=== PATIENT | male | born 1960 | race Caucasian/White ===

== ENCOUNTER 2017-08-27 08:14 | Emergency (ER) | payer OTHER ==
[2017-08-27 08:40] VITALS: O2SAT 97
[2017-08-27] MEDS ORDERED: cloNIDine HCL 0.1 MG TAB PO ONE (08:59)
--- NOTE | 2017-08-27 08:59 | ED.PDOC ---
History of Present Illness - General Chief Complaint: Respiratory Problem Stated Complaint: cough, vomiting Time Seen by Provider: 08/27/17 08:54 Source: patient Exam Limitations: no limitations Additional Information: PT C/O COUGH FOR 1 WEEK. COUGH IS SPASMOTIC. HAS BEEN TAKING OTC DECONGESTANTS AND TAMIFLU PROPHYLACTICALLY, 1 DAY AGO HE STARTED TWICE DAILY TAMIFLU. HAS HAD DIRECT EXPOSURE TO INFLUENZA. HAS ALSO BEEN OUT OF HIS CLONIDINE FOR THE PAST 2- 4 WEEKS. - History of Present Illness Allergies/Adverse Reactions: Allergies Lisinopril [From Zestril] Allergy (Unknown, Verified 06/05/16 22:36) Home Medications: Ambulatory Orders Amoxicillin & Pot Clavulanate [Augmentin Tab] 875 mg PO BID #20 tab 08/27/17 Clonidine HCl 0.2 mg PO BID #60 tab 08/27/17 Hydrochlorothiazide 25 mg PO DAILY 08/27/17 Propranolol HCl 20 mg PO DAILY 08/27/17 Review of Systems - Review of Systems Constitutional: States: fever. Denies: chills EENTM: States: throat pain. Denies: ear pain, nose congestion Respiratory: States: cough, short of breath, wheezing, other - POST TUSSIVE EMESIS Cardiology: Denies: chest pain, palpitations Gastrointestinal/Abdominal: Denies: abdominal pain, nausea, vomiting Genitourinary: States: no symptoms reported Musculoskeletal: States: no symptoms reported Skin: States: no symptoms reported Neurological: States: no symptoms reported Endocrine: States: no symptoms reported Hematologic/Lymphatic: States: no symptoms reported Past Medical History (General) - Patient Medical History Hx Seizures: No Hx Stroke: No Hx Dementia: No Hx Asthma: No Hx of COPD: No Hx Cardiac Disorders: No Hx Congestive Heart Failure: No Hx Pacemaker: No Hx Hypertension: Yes Hx Thyroid Disease: No Hx Diabetes: No Hx Gastroesophageal Reflux: No Hx Renal Disease: No Hx of HIV: No Hx MRSA: No Surgical History: other - Social History Hx Tobacco Use: No Hx Alcohol Use: Yes - socially Hx Substance Use: No Family Medical History - Family History Mother Family History: Unknown Living Status: Hx Family Congestive Heart Failure: Yes Hx Cardiac Disease: Yes Hx Family Diabetes: Yes Physical Exam - Physical Exam General Appearance: Alert, No apparent distress Eye Exam: bilateral normal Ears, Nose, Throat: normal pharynx, other - TM'S NL Neck: full range of motion, supple Respiratory: no respiratory distress - COARSE RUL RHONCHI Cardiovascular/Chest: regular rate, rhythm, no murmur Gastrointestinal/Abdominal: normal bowel sounds, non tender, soft, no organomegaly Back Exam: normal inspection, no CVA tenderness Extremity: normal range of motion, normal inspection, no pedal edema, no calf tenderness Neurologic: alert, normal mood/affect Skin Exam: normal color, warm/dry Lymphatic: no adenopathy Progress - Progress Progress: 08/27/17 10:32 BP BETTER. ASYMPTOMATIC, ELEVATED SECONDARY TO DECONGESTANTS AND ABRUPTLY STOPPING CLONIDINE. WILL RX ABX AND CLONIDINE WITH INSTRUCTIONS TO FOLLOW UP WITH PCP. NO OUTPT INFLUENZA TESTS AVAILABLE AT THIS TIME. 08/27/17 10:37 - EKG/XRAY/CT XRAY: chest - LLL INFILTRATE Departure - Departure Clinical Impression: Elevated blood pressure reading, Pneumonia and influenza Hypertension Qualifiers: Hypertension type: essential hypertension Qualified Code(s): I10 - Essential ( primary) hypertension Time of Disposition: 10:38 Disposition: Discharge to Home or Self Care Condition: Good Departure Forms: ED Discharge - Pt. Copy, Patient Portal Self Enrollment Instructions: Pneumonia-Adult, Influenza, High Blood Pressure Prescriptions: Amoxicillin & Pot Clavulanate [Augmentin Tab] 875 mg PO BID #20 tab Clonidine HCl 0.2 mg PO BID #60 tab Home Medications: Ambulatory Orders Amoxicillin & Pot Clavulanate [Augmentin Tab] 875 mg PO BID #20 tab 08/27/17 Clonidine HCl 0.2 mg PO BID #60 tab 08/27/17 Hydrochlorothiazide 25 mg PO DAILY 08/27/17 Propranolol HCl 20 mg PO DAILY 08/27/17
--- NOTE | 2017-08-27 09:48 | RAD ---
PROCEDURE: Chest,2 Views CLINICAL HISTORY: COUGH, FEVER INDICATION: Same as above COMPARISON: None TECHNIQUE: PA and and lateral chest radiographs were obtained. FINDINGS: The lung bradley are well inflated. There are no discrete airspace infiltrates, pneumothoraces or pleural effusions. The pulmonary vascularity is normal The cardiomediastinal silhouette is unremarkable for patient's age and sex. IMPRESSION: There is no acute pleural-parenchymal process seen in the imaged lung bradley. Place of interpretation: [facility]. Electronically signed by: Barrera Montalvo MD 08/27/2017 9:47 AM [employer] Workstation: [id number]
[2017-08-27] MEDS ORDERED: cefTRIAXone SODIUM 1 GM in SODIUM CHL 0.9% 50ML MIN-BAG+ 50 ML IVPB ONE (10:01)
[2017-08-27] MEDS ORDERED: cefTRIAXone SODIUM 1 GM VIAL ONE (10:07)
[2017-08-27] MEDS ORDERED: SODIUM CHL 0.9% 50ML MIN-BAG+ 0 ML IVPB ONE (10:08)
[2017-08-27] MEDS ORDERED: cefTRIAXone SODIUM 1 GM VIAL IM ONE (10:15)
[2017-08-27 10:18] VITALS: BP 156/108
[2017-08-27] MEDS ORDERED: LIDOCAINE 1% 10 ML VIAL INJ ONE (10:20)
== END 2017-08-27 11:00 | disposition home or self-care (01) ==
LOC: ER 08:14
DX: J11.00 Influenza due to unidentified influenza virus with unspecified type of pneumonia (principal); I10 Essential (primary) hypertension
CPT/HCPCS: 36415; 71046; 80053; 81001; 85025; J0696

== ENCOUNTER 2020-06-28 10:15 | Emergency (ER) | payer OTHER ==
[2020-06-28 10:35] VITALS: O2SAT 95
--- NOTE | 2020-06-28 10:51 | ED.PDOC ---
History of Present Illness - General Chief Complaint: General Stated Complaint: chills,achiness,cough,fever,SOB Time Seen by Provider: 06/28/20 10:21 Source: patient Exam Limitations: no limitations - History of Present Illness Timing/Duration: unsure, other - 4 days Severity: mild, moderate Improving Factors: nothing Worsening Factors: nothing Associated Symptoms: cough, shortness of breath, other - states that he only feels short of breath after exertion Allergies/Adverse Reactions: Allergies Lisinopril [From Zestril] Allergy (Unknown, Verified 06/05/16 22:36) Amlodipine Allergy (Verified 06/28/20 10:49) Home Medications: Ambulatory Orders Hydrochlorothiazide 25 mg PO DAILY 08/27/17 Propranolol HCl [Propranolol Hydrochloride] 20 mg PO DAILY 08/27/17 FLUoxetine HCL 06/28/20 Review of Systems - Review of Systems Constitutional: States: chills, fever. Denies: diaphoresis EENTM: Denies: eye pain, tearing, ear pain, nose pain Respiratory: States: cough, short of breath - with exertion , other - wi Cardiology: Denies: chest pain, syncope Gastrointestinal/Abdominal: States: nausea, vomiting. Denies: abdominal pain, diarrhea Genitourinary: Denies: discharge, frequency, hematuria Musculoskeletal: States: muscle pain. Denies: back pain, joint swelling, muscle stiffness Skin: Denies: change in color, dryness, lesions Neurological: Denies: see HPI, numbness, tremors Past Medical History (General) - Patient Medical History Hx Seizures: No Hx Stroke: No Hx Dementia: No Hx Asthma: No Hx of COPD: No Hx Cardiac Disorders: No Hx Congestive Heart Failure: No Hx Pacemaker: No Hx Hypertension: Yes Hx Thyroid Disease: No Hx Diabetes: No Hx Gastroesophageal Reflux: No Hx Renal Disease: No Hx of HIV: No Hx MRSA: No - Vaccination History Hx Influenza Vaccination: Yes Hx Pneumococcal Vaccination: Yes - Social History Hx Tobacco Use: Yes - occasional pipe smoker Hx Alcohol Use: Yes - socially Hx Substance Use: No Family Medical History - Family History Mother Family History: Unknown Living Status: Hx Family Congestive Heart Failure: Yes Hx Cardiac Disease: Yes Hx Family Diabetes: Yes Physical Exam - Physical Exam General Appearance: Alert Eye Exam: bilateral normal Ears, Nose, Throat: hearing grossly normal, normal ENT inspection, normal pharynx Neck: non-tender, full range of motion, supple, normal inspection Respiratory: chest non-tender, lungs clear, normal breath sounds, no respiratory distress, no accessory muscle use Cardiovascular/Chest: normal peripheral pulses, regular rate, rhythm, no edema, no gallop, no JVD Peripheral Pulses: radial,right: 2+, radial,left: 2+, posterior tibialis,right: 2+, posterior tibialis,left: 2+ Gastrointestinal/Abdominal: normal bowel sounds, non tender, soft, no organomegaly, no pulsatile mass Rectal Exam: normal exam, normal rectal tone Back Exam: normal inspection, no CVA tenderness, no vertebral tenderness Extremity: normal range of motion, non-tender, normal inspection, no pedal edema, no calf tenderness 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 He states that he has exertional shortness of breath. States that is only when he overworks himself. Lung examination Unremarkable. Patient is positive for Covid with discharge patient homeFollow-up instructions.And return precautions he verbalized understanding - EKG/XRAY/CT XRAY: chest - EXAM DESCRIPTION: Chest,1 View CLINICAL HISTORY: Sob COMPARISON: August 27, 2017 FINDINGS: The cardiac silhouette is at the upper limits of normal size. Mediastinal contours. There is no airspace consolidation or pleural effusion. The bronchovascular markings are within normal limits, and t Departure - Departure Clinical Impression: COVID-19 Clinical Impression: (Ruled Out): COVID-19 determined by clinical diagnostic criteria Disposition: Discharge to Home or Self Care Departure Forms: ED Discharge - Pt. Copy, Patient Portal Self Enrollment Instructions: Coronavirus Disease 2019 (COVID-19), Isolation Precautions Diet: full liquid diet Home Medications: Ambulatory Orders Hydrochlorothiazide 25 mg PO DAILY 08/27/17 Propranolol HCl [Propranolol Hydrochloride] 20 mg PO DAILY 08/27/17 FLUoxetine HCL 06/28/20 Additional Instructions: -Please return to the emergency department immediately develop any trouble breathing any chest pain or any hypoxia -Please ensure to follow-up with primary care physician in 1 to 2 days. -Return to the emergency department as needed
--- NOTE | 2020-06-28 11:23 | RAD ---
EXAM DESCRIPTION: Chest,1 View CLINICAL HISTORY: Sob COMPARISON: August 27, 2017 FINDINGS: The cardiac silhouette is at the upper limits of normal size. Mediastinal contours. There is no airspace consolidation or pleural effusion. The bronchovascular markings are within normal limits, and the lungs are not hyperinflated. There is no pneumothorax or acute fracture. IMPRESSION: Borderline enlargement of the cardiac silhouette, otherwise unremarkable exam. Electronically signed by: Kyle Oliveros MD 06/28/2020 11:21 AM [facility]
[2020-06-28] MEDS ORDERED: ACETAMINOPHEN 500 MG TAB PO ONE (12:00)
[2020-06-28 13:29] VITALS: BP 149/109; TEMP 97.8
== END 2020-06-28 13:28 | disposition home or self-care (01) ==
LOC: ER 10:15
DX: U07.1 COVID-19 (principal); I10 Essential (primary) hypertension; Z72.0 Tobacco use; Z88.8 Allergy status to other drugs, medicaments and biological substances

== ENCOUNTER 2020-07-05 12:12 | Inpatient (IN) | payer OTHER ==
--- NOTE | 2020-07-05 13:48 | ED.PDOC ---
History of Present Illness - General Chief Complaint: Respiratory Problem Stated Complaint: SOB and difficulty breathing Time Seen by Provider: 07/05/20 12:24 Source: patient, RN notes reviewed, Vital Signs reviewed, family - significant other Exam Limitations: no limitations - History of Present Illness Initial Comments: Patient is a 59-year-old white male who was at home when he noticed worsening shortness of breath. Patient was diagnosed with Covid about a week ago. Patient denies any fever or chills but states that he just became acutely more short of breath on last 24 hours. Patient continues to smoke. Patient denies any cough. Timing/Duration: 24 hours Severity: severe Improving Factors: nothing Worsening Factors: movement Associated Symptoms: cough, malaise, shortness of breath, weakness Allergies/Adverse Reactions: Allergies Lisinopril [From Zestril] Allergy (Unknown, Verified 07/05/20 12:46) Amlodipine Allergy (Verified 07/05/20 12:46) Home Medications: Ambulatory Orders Hydrochlorothiazide 25 mg PO DAILY 08/27/17 Propranolol HCl [Propranolol Hydrochloride] 20 mg PO DAILY 08/27/17 FLUoxetine HCL 06/28/20 Review of Systems - Review of Systems Constitutional: States: see HPI, malaise, weakness. Denies: chills, fever EENTM: States: no symptoms reported. Denies: eye pain, blurred vision, double vision Respiratory: States: see HPI, cough, short of breath. Denies: stridor, wheezing Cardiology: States: no symptoms reported. Denies: chest pain, palpitations, syncope Gastrointestinal/Abdominal: States: no symptoms reported. Denies: abdominal pain, diarrhea, nausea, vomiting Genitourinary: States: no symptoms reported. Denies: dysuria, frequency Musculoskeletal: States: no symptoms reported. Denies: back pain, joint pain, neck pain Skin: States: no symptoms reported. Denies: change in color, rash Neurological: States: no symptoms reported. Denies: tingling, tremors, weakness Endocrine: States: no symptoms reported. Denies: increased hunger, increased t ava, increased urine Hematologic/Lymphatic: States: no symptoms reported. Denies: blood clots, easy bleeding All other Systems: Reviewed and Negative Past Medical History (General) - Patient Medical History Hx Seizures: No Hx Stroke: No Hx Dementia: No Hx Asthma: No Hx of COPD: No Hx Cardiac Disorders: No Hx Congestive Heart Failure: No Hx Pacemaker: No Hx Hypertension: Yes Hx Thyroid Disease: No Hx Diabetes: No Hx Gastroesophageal Reflux: No Hx Renal Disease: No Hx Cancer: No Hx of HIV: No Hx MRSA: No Surgical History: other - Vaccination History Hx Influenza Vaccination: Yes Hx Pneumococcal Vaccination: Yes - Social History Hx Tobacco Use: No Hx Alcohol Use: Yes Hx Substance Use: No Hx Substance Use Treatment: No Hx Depression: Yes - Female History Patient is a Female of Child Bearing Age (10 -59 yrs old): No Patient : No Family Medical History - Family History Mother Family History: Unknown Living Status: Hx Family Congestive Heart Failure: Yes Hx Cardiac Disease: Yes Hx Family Diabetes: Yes Physical Exam - Physical Exam General Appearance: Alert, Anxious, Obvious distress, Ill Appearing, Unkempt, Well Developed, Well Hydrated, Well Nourished Eye Exam: bilateral normal Ears, Nose, Throat: hearing grossly normal, normal ENT inspection Neck: non-tender, full range of motion, supple Respiratory: chest non-tender, respiratory distress - moderate, decreased breath sounds, rhonchi - diffusely throughout Cardiovascular/Chest: normal peripheral pulses, regular rate, rhythm, no edema, no gallop, no JVD, no murmur Gastrointestinal/Abdominal: normal bowel sounds, non tender, soft Back Exam: normal inspection, no CVA tenderness, no vertebral tenderness Extremity: normal range of motion, non-tender, normal inspection 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 07/05/20 18:15 Patient's oxygenation has improved. He is now on 6 L and maintaining sats in the 94 to 96% range. Plan on admission to the hospital. I discussed this with the patient he voices understanding and agreement. [facility] but [facility] do not have any available beds and therefore recommended admission here. I have discussed this patient with Charlotte Schwarz NP, who accepts patient for admission. Kailash Oconnor M.D. #[id number] - Results/Orders Results/Orders: EKG performed on 05 July 2020 at 1248 hrs.: Sinus rhythm with premature supraventricular complexes at 82 bpm, voltage criteria for left ventricular hypertrophy, nonspecific ST abnormalities, abnormal EKG. No comparison EKG available at this time. EXAM DESCRIPTION: Chest,1 View CLINICAL HISTORY: 59 years Male hypoxia on room air COMPARISON: Portable chest dated 06/28/2020 TECHNIQUE: Portable AP view of the chest is obtained. FINDINGS IN THE CHEST: Heart: Allowing for magnification factors related to AP portable technique and body habitus, the heart is mildly to moderately enlarged. Vasculature: [] There is no evidence of aortic aneurysm or acute findings. The pulmonary vascularity is normal. Mediastinum: No evidence of mass or adenopathy. Lungs: The study is obtained during a markedly suboptimal depth of inspiration with resultant decreased lung volumes. 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 Phrenic nerve injury or palsy also considerations but less likely. Patchy groundglass opacities are present in the lower half of the right lung and in the mid and lower aspects of the left lung which have developed in the interim. Pleura: There are no pleural effusions. There are no pneumothoraces. Osseous structures: No evidence of acute fracture, osteolytic lesions or osteoblastic lesions. Tubes and catheters: None Chest wall: Unremarkable. Visualized Abdomen: Unremarkable. IMPRESSION: Cardiomegaly and bilateral groundglass opacities could indicate fluid overload i.e. congestive heart failure with pulmonary edema. Bacterial pneumonia bilaterally not excluded. Noncardiogenic pulmonary edema is also a consideration. Remainder of findings as described above. Electronically signed by: Eloise Houston MD 07/05/2020 2:14 PM 07/05/20 12:30 EKG STAT Pulse Ox, Continuous Monitoring STAT 07/06/20 12:30 Pulse Ox, Continuous Monitoring STAT 07/07/20 12:30 Pulse Ox, Continuous Monitoring STAT Laboratory Results - last 24 hr 07/05/20 07/05/20 07/05/20 12:38 12:38 12:38 WBC 20.5 H* RBC 5.07 Hgb 15.5 Hct 44.3 MCV 87.5 MCH 30.5 MCHC 34.9 RDW 13.3 Plt Count 336 MPV 8.6 Absolute Neuts (auto) Not Reportable Absolute Lymphs (auto) Not Reportable Absolute Monos (auto) Not Reportable Absolute Eos (auto) Not Reportable Neutrophils % Not Reportable Neutrophils % (Manual) 86.0 H Lymphocytes % Not Reportable Lymphocytes % (Manual) 5.0 Monocytes % Not Reportable Monocytes % (Manual) 6.0 Eosinophils % Not Reportable Basophils % Not Reportable Band Neutrophils 3.0 H Platelet Estimate Normal Normal RBC Morphology Normal rbc morph PTT (SP) 23.2 D-Dimer, Quantitative 707.0 H* pCO2 pO2 HCO3 ABG pH ABG O2 Saturation ABG Base Excess ABG Deoxyhemoglobin Oxyhemoglobin % Carboxyhemoglobin % Methemoglobin % Sat Calc Total Hemoglobin Sodium 138 Potassium 3.5 L Chloride 102 Carbon Dioxide 23 Anion Gap 16.5 BUN 29 H Creatinine 0.92 BUN/Creatinine Ratio 31.5 H Random Glucose 105 Serum Osmolality 281.9 Calcium 8.7 Magnesium 1.9 Total Bilirubin 1.0 AST 20 ALT 25 Alkaline Phosphatase 61 LD Total 287 H Creatine Kinase 37 L Troponin I C-Reactive Protein 8.7 H* B-Natriuretic Peptide 89.3 Serum Total Protein 7.1 Albumin 3.2 Globulin 3.9 H Albumin/Globulin Ratio 0.8 L 07/05/20 07/05/20 12:38 14:31 WBC RBC Hgb Hct MCV MCH MCHC RDW Plt Count MPV Absolute Neuts (auto) Absolute Lymphs (auto) Absolute Monos (auto) Absolute Eos (auto) Neutrophils % Neutrophils % (Manual) Lymphocytes % Lymphocytes % (Manual) Monocytes % Monocytes % (Manual) Eosinophils % Basophils % Band Neutrophils Platelet Estimate Normal RBC Morphology PTT (SP) D-Dimer, Quantitative pCO2 34 L pO2 70 L HCO3 25.2 ABG pH 7.483 H ABG O2 Saturation 94.2 L ABG Base Excess 2.3 ABG Deoxyhemoglobin 5.7 H Oxyhemoglobin % 92.6 L Carboxyhemoglobin % 1.0 Methemoglobin % Sat 0.7 Calc Total Hemoglobin 16.3 Sodium Potassium Chloride Carbon Dioxide Anion Gap BUN Creatinine BUN/Creatinine Ratio Random Glucose Serum Osmolality Calcium Magnesium Total Bilirubin AST ALT Alkaline Phosphatase LD Total Creatine Kinase Troponin I 0.03 C-Reactive Protein B-Natriuretic Peptide Serum Total Protein Albumin Globulin Albumin/Globulin Ratio Vital Signs 07/05/20 07/05/20 07/05/20 12:25 12:27 13:30 Temperature 98.4 F Pulse Rate [ 82 82 82 Pulse ox] Respiratory 24 24 24 Rate Blood Pressure 164/123 161/124 [R arm] O2 Sat by Pulse 82 L 81 L Oximetry 07/05/20 14:30 Temperature Pulse Rate [ 71 Pulse ox] Respiratory 22 Rate Blood Pressure 161/122 [R arm] O2 Sat by Pulse 92 L Oximetry Departure - Departure Clinical Impression: Hypoxemia, COVID-19 Pneumonia Qualifiers: Pneumonia type: due to unspecified organism Laterality: bilateral Lung location: unspecified part of lung Qualified Code(s): J18.9 - Pneumonia, unspecified organism Time of Disposition: 17:00 Disposition: Discharge to Home or Self Care Condition: Serious Departure Forms: ED Discharge - Pt. Copy, Patient Portal Self Enrollment Home Medications: Ambulatory Orders Hydrochlorothiazide 25 mg PO DAILY 08/27/17 Propranolol HCl [Propranolol Hydrochloride] 20 mg PO DAILY 08/27/17 FLUoxetine HCL 06/28/20 Decision To Admit - Decistion To Admit Decision to Admit Date: 07/05/20 Decision to Admit Time: 17:00
--- NOTE | 2020-07-05 14:16 | RAD ---
EXAM DESCRIPTION: Chest,1 View CLINICAL HISTORY: 59 years Male hypoxia on room air COMPARISON: Portable chest dated 06/28/2020 TECHNIQUE: Portable AP view of the chest is obtained. FINDINGS IN THE CHEST: Heart: Allowing for magnification factors related to AP portable technique and body habitus, the heart is mildly to moderately enlarged. Vasculature: [] There is no evidence of aortic aneurysm or acute findings. The pulmonary vascularity is normal. Mediastinum: No evidence of mass or adenopathy. Lungs: The study is obtained during a markedly suboptimal depth of inspiration with resultant decreased lung volumes. 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 Phrenic nerve injury or palsy also considerations but less likely. Patchy groundglass opacities are present in the lower half of the right lung and in the mid and lower aspects of the left lung which have developed in the interim. Pleura: There are no pleural effusions. There are no pneumothoraces. Osseous structures: No evidence of acute fracture, osteolytic lesions or osteoblastic lesions. Tubes and catheters: None Chest wall: Unremarkable. Visualized Abdomen: Unremarkable. IMPRESSION: Cardiomegaly and bilateral groundglass opacities could indicate fluid overload i.e. congestive heart failure with pulmonary edema. Bacterial pneumonia bilaterally not excluded. Noncardiogenic pulmonary edema is also a consideration. Remainder of findings as described above. Electronically signed by: Eloise Houston MD 07/05/2020 2:14 PM [employer]
[2020-07-05] MEDS ORDERED: AZITHROMYCIN IV 500 MG in SODIUM CHLORIDE 0.9% 250ML 250 ML IVPB ONE (14:47)
[2020-07-05] MEDS ORDERED: cefTRIAXone SODIUM 1 GM in SODIUM CHL 0.9% 50ML MIN-BAG+ 50 ML IVPB ONE (14:48)
[2020-07-05] MEDS ORDERED: REMDESIVIR 200 MG in SODIUM CHLORIDE 0.9% 250ML 250 ML IVPB ONE (16:28)
[2020-07-05] MEDS ORDERED: DEXAMETHASONE INJ 10 MG/ML VIAL IV ONE (16:28)
--- NOTE | 2020-07-05 19:07 | HP ---
SUPERVISING PHYSICIAN: Dane Taylor MD CHIEF COMPLAINT: Shortness of breath. HISTORY OF PRESENT ILLNESS: Mr. Ordonez is a 59-year-old male patient who has recently been treated for a COVID-19 infection on 06/28/20 with steroids. He noted that over the last 24 hours, he had some increasing shortness of breath. He denied any chills or fever, but noted with ambulation he was really short of breath. He denied any chest pains. Vital signs in the Emergency Room showed saturation 82% initially on room air at rest. He was also hypertensive with blood pressure 161/122, afebrile at 98.4. His white count was elevated at 20,500 with 3% bands. D-dimer was slightly elevated at 707. Blood gas analysis in the Emergency Room on high flow nasal cannula initially showed he was saturation 94% with pH 7.48, pO2 70, pCO2 34, bicarb 25.2. Chemistries initially on admission showed troponin negative. He was not having any chest pains. C-reactive protein 8.7. BNP was normal. EKG showed sinus rhythm with PVCs, but no ST or T-wave changes to indicate acute injury or ischemia. Blood cultures were completed. Chest x-ray showed cardiomegaly with bilateral ground glass opacities and questionable pulmonary edema and unable to fully rule out bacterial pneumonia bilaterally. He was started on treatment with Remdesivir and now is going to be admitted for further treatment of COVID pneumonia secondary to COVID infection. He was admitted in stable condition. The patient is a patient of the [place] system and they were contacted, but due to capacity, they recommended he be admitted to [facility]. PAST MEDICAL HISTORY: 1. Hypertension. 2. Gout. 3. Multiple kidney stones. PAST SURGICAL HISTORY: 1. Multiple kidney stone removals surgically. HOME MEDICATIONS: 1. Clonidine 0.1 mg p.r.n. for hypertension. 2. Losartan 100 mg daily. 3. Prozac 10 mg t.i.d. 4. Propranolol 40 mg daily. 5. Hydrochlorothiazide 25 mg daily. ALLERGIES: LISINOPRIL, AMLODIPINE. FAMILY HISTORY: Mother in her 80s from complications from CHF and diabetes. Father at age 80 secondary to complications of dementia. He has two sister, one has multiple sclerosis, the other is bipolar. SOCIAL HISTORY: The patient is and lives in [place]. 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 He has no history of tobacco or alcohol usage. He is a . REVIEW OF SYSTEMS: CONSTITUTIONAL: Generalized weakness. Denies any fevers, chills or unintentional weight loss. HEENT: Denies headaches, sore throats, earaches, nasal congestion, vision changes. RESPIRATORY: As noted in history of present illness, worsening cough, shortness of breath. Denies any stridors or wheezing. CARDIOVASCULAR: Denies chest pain, palpitations or syncopal episodes. He does have a history of poorly controlled hypertension. GASTROINTESTINAL: Denies nausea, vomiting, diarrhea, constipation or abdominal pain. GENITOURINARY: Denies dysuria, hematuria, polyuria. MUSCULOSKELETAL: Denies back pain, joint pain or neck. SKIN: Denies lesions, rashes or unexplained changes. NEUROLOGIC: Denies tremors, tingling, weakness, paresthesias or other focal motor deficits, seizures or ataxia. HEMATOLOGIC: Denies unexplained bleeding, bruising or transfusion reactions. PHYSICAL EXAMINATION: VITAL SIGNS: On admission to the Medical/Surgical Floor, temperature 99.1, pulse 58, blood pressure 163/118, oxygen saturation 93% on high flow nasal cannula. GENERAL: The patient is resting comfortably. He is obvious short of breath. He gets quite winded even with conversation. He is not currently showing any signs of impending respiratory distress. HEENT: Tympanic membranes clear bilaterally. Oropharynx is pink, moist without any lesions. NECK: Supple, nontender with full range of motion. No jugular venous distention noted. RESPIRATORY: Lung sounds are diminished throughout. I do not hear any rhonchi, wheezes or rales. CARDIOVASCULAR: Regular rate and rhythm without any appreciable murmurs, gallops, or rubs. ABDOMEN: Soft, nontender. Positive bowel sounds. EXTREMITIES: There is no cyanosis, clubbing or edema. NEUROLOGIC: Cranial nerves II-XII are grossly intact. The patient is alert and oriented times three. SKIN: Warm, pink and dry. LABORATORY: White count initially 20,500, hemoglobin 15.5, hematocrit 44.3, platelet count 336,000. Differential did show a left shift with 3% bands. Coagulation studies showed D-dimer 707. Chemistries showed normal electrolytes except for potassium 3.5, creatinine 0.92. Liver functions all within normal limits. Troponin 0.03. C-reactive protein initially 8.7. MICROBIOLOGY: Blood cultures are pending. RADIOLOGY: Chest x-ray per radiologic interpretation showed cardiomegaly with bilateral ground glass opacities which could indicate fluid overload or congestive heart failure with pulmonary edema, bacterial pneumonia bilaterally not excluded along with noncardiac pulmonary edema. ASSESSMENT: 1. COVID pneumonia with associated hypoxemia. 2. Uncontrolled hypertension. 3. Mild electrolyte imbalance in the form of hypokalemia. 4. History of gout. PLAN: Mr. Ordonez is going to be admitted for treatment of COVID pneumonia. He will be started on azithromycin and Rocephin with continued Remdesivir. He will be on Protonix for GI protection and Lovenox per protocol. We will resume his home medications and hopefully control his blood pressure better and and utilize clonidine as needed to better control p.r.n. Given his hypertension and questionable cardiomegaly on initial chest x-ray, we will follow his co- expression, but at this point hold off on getting an echocardiogram because he did have a normal BNP. We will follow his labs and x-rays per protocol. I would anticipate his length of stay to be at least 2 to 3 days. He is already on high flow oxygen and we will work to titrate that done. I anticipate he will probably need to go home on oxygen. Until the patient can transition to outpatient management, we will continue to monitor and treat as needed. #[id number] MTDD
[2020-07-05] MEDS ORDERED: PROPRANOLOL HCL 20 MG TAB PO SCH (21:30)
[2020-07-05] MEDS ORDERED: ONDANSETRON INJ 4 MG/2 ML VIAL IV PRN (21:47)
[2020-07-05] MEDS ORDERED: ACETAMINOPHEN 325 MG TAB PO PRN (21:47)
[2020-07-05] MEDS ORDERED: SODIUM CHLORIDE 0.9% (FLUSH) 10 ML SYG IV PRN (21:47)
[2020-07-05] MEDS ORDERED: ALBUTEROL INHALER 64 PUFF/8GM INH PRN (21:51)
[2020-07-05] MEDS: ENOXAPARIN SODIUM 40 MG/0.4 ML SYG SUBCU SCH (23:06)
[2020-07-05] MEDS: IV SET AND CAP CHANGE INJ INJ SCH (23:07)
[2020-07-06] MEDS ORDERED: cloNIDine HCL 0.1 MG TAB PO ONE ×2 (05:05→17:20)
[2020-07-06] MEDS: PANTOPRAZOLE SODIUM IV 40 MG VIAL IV SCH (05:37)
[2020-07-06] MEDS ORDERED: cefTRIAXone SODIUM 1 GM VIAL ONE (08:18)
[2020-07-06] MEDS ORDERED: SODIUM CHL 0.9% 50ML MIN-BAG+ 50 ML IVPB ONE (08:18)
[2020-07-06] MEDS ORDERED: SODIUM CHLORIDE 0.9% 250ML 250 ML ONE ×2 (08:18→14:57)
[2020-07-06] MEDS ORDERED: AZITHROMYCIN IV 500 MG VIAL IVPB ONE (08:18)
[2020-07-06] MEDS: ALBUTEROL INHALER 64 PUFF/8GM INH SCH ×4 (08:20→20:26)
[2020-07-06] MEDS: DEXAMETHASONE INJ 10 MG/ML VIAL IV SCH (09:11)
[2020-07-06] MEDS: AZITHROMYCIN IV 500 MG in SODIUM CHLORIDE 0.9% 250ML 250 ML IVPB SCH (09:11)
[2020-07-06] MEDS: cefTRIAXone SODIUM 1 GM in SODIUM CHL 0.9% 50ML MIN-BAG+ 50 ML IVPB SCH (09:11)
[2020-07-06] MEDS: BIFIDOBACTERIUM INFANTIS 4 MG CAP PO SCH ×2 (09:12→20:17)
[2020-07-06] MEDS: SODIUM CHLORIDE 0.9% (FLUSH) 10 ML SYG IV SCH ×2 (09:12→20:17)
[2020-07-06] MEDS: guaiFENesin ER TAB 600 MG TAB PO SCH ×2 (09:12→20:17)
[2020-07-06] MEDS: IPRATROPIUM/ALBUTEROL 3 ML VIAL NEB SCH ×3 (14:27→20:26)
[2020-07-06] MEDS ORDERED: hydroCHLOROthiazide 12.5 MG CAP ONE (14:57)
[2020-07-06] MEDS ORDERED: REMDESIVIR IV 100 MG VIAL ONE (14:57)
[2020-07-06] MEDS: PROPRANOLOL HCL 20 MG TAB PO SCH (15:30)
[2020-07-06] MEDS: hydroCHLOROthiazide 25 MG TAB PO SCH (15:30)
[2020-07-06] MEDS: REMDESIVIR 100 MG in SODIUM CHLORIDE 0.9% 250ML 250 ML IVPB SCH (15:30)
[2020-07-06] MEDS: LOSARTAN POTASSIUM 100 MG TAB PO SCH (15:30)
[2020-07-06] MEDS: FLUoxetine HCL 10 MG CAP PO SCH ×2 (15:30→20:17)
[2020-07-06] MEDS ORDERED: IPRATROPIUM/ALBUTEROL 3 ML VIAL NEB ONE ×2 (15:56→19:59)
--- NOTE | 2020-07-06 18:47 | PN ---
SUPERVISING PHYSICIAN: Dane Taylor MD DATE: 07/06/20 SUBJECTIVE: The patient is still quite short of breath. He is still requiring continued high flow oxygen, but not showing any distress. He has not had any chest pain. His blood pressure is still notably high. We are still waiting on verification at time of exam to get his medications re-started. OBJECTIVE: VITAL SIGNS: Temperature 97.7, pulse 173/99, respirations 23, saturation 92-94% on non-rebreather and nasal cannula high flow at 10 liters. GENERAL: The patient seems to be resting comfortably in no acute distress. He is awfully short of breath. He can converse in complete sentences, but is requiring continued oxygen. CHEST: Lungs are clear to auscultation, just diminished towards the bases. I do not hear any rales or rhonchi. ABDOMEN: Soft, nontender. Positive bowel sounds. EXTREMITIES: No edema. NEUROLOGIC: Alert and oriented times three. LABORATORY: White count down to 16,600. Left shift is still present, but not bands are present at this point. Coagulation studies show D-dimer down to 580. Chemistries show normal electrolytes and normal potassium today. His creatinine is at 0.97. Magnesium and calcium are normal. C-reactive protein is down to 8.0. RADIOLOGY: Repeat chest x-ray will be tomorrow. 1. COVID pneumonia with associated hypoxemia. 2. Uncontrolled hypertension. 3. Electrolyte imbalance in the form of hypokalemia, now normalized. 4. History of gout. PLAN: We will continue current plan of care. We are trying to get his blood pressure in better control with some clonidine and titrate his oxygen down. He remains on standard treatment with Remdesivir, azithromycin, Rocephin, Lovenox, Protonix, Align. Again, hopefully we will be able to discharge him within the next 2 or 3 days as soon as we can get his oxygen requirements down and continued treatment as an outpatient. Until then, we will continue to monitor and treat as needed. #[id number] MTDD
[2020-07-06] MEDS ORDERED: ENOXAPARIN SODIUM 40 MG/0.4 ML SYG SUBCU ONE (19:11)
[2020-07-06] MEDS: ENOXAPARIN SODIUM 40 MG/0.4 ML SYG SUBCU SCH (20:17)
[2020-07-06] MEDS ORDERED: FUROSEMIDE INJ 20 MG/2 ML VIAL IV ONE (21:26)
[2020-07-06] MEDS: NITROGLYCERIN 0.4 MG/HR PATCH TOP SCH (21:57)
[2020-07-06] MEDS: ALPRAZolam 0.5 MG TAB PO PRN (23:20)
[2020-07-06] MEDS: MORPHINE SULFATE INJ 10 MG/ML VIAL IV PRN (23:20)
--- NOTE | 2020-07-07 00:24 | RAD ---
EXAM DESCRIPTION: Chest,1 View CLINICAL HISTORY: 59 years Male, COVID + COMPARISON: 07/05/2020 TECHNIQUE: Single AP chest radiograph. FINDINGS: Stable bilateral lung opacities. No pneumothorax or pleural effusion. Stable cardiomediastinal contour. IMPRESSION: 1. Stable pulmonary opacities. Electronically signed by: Valeriano Larson MD 07/07/2020 12:23 AM [employer]
[2020-07-07] MEDS ORDERED: LEVALBUTEROL NEBS 1.25 MG/3 ML VIAL NEB PRN (01:06)
[2020-07-07] MEDS ORDERED: PANTOPRAZOLE SODIUM IV 40 MG VIAL ONE (02:29)
[2020-07-07] MEDS: MORPHINE SULFATE INJ 10 MG/ML VIAL IV PRN ×2 (03:25→09:48)
[2020-07-07] MEDS: PANTOPRAZOLE SODIUM IV 40 MG VIAL IV SCH (06:05)
[2020-07-07] MEDS ORDERED: DEXAMETHASONE INJ 10 MG/ML VIAL ONE (07:35)
[2020-07-07] MEDS ORDERED: FLUoxetine HCL 10 MG CAP PO ONE (07:35)
[2020-07-07] MEDS ORDERED: BIFIDOBACTERIUM INFANTIS 4 MG CAP ONE (07:36)
[2020-07-07] MEDS ORDERED: PROPRANOLOL HCL 20 MG TAB ONE (07:36)
[2020-07-07] MEDS ORDERED: guaiFENesin ER TAB 600 MG TAB ONE (07:36)
[2020-07-07] MEDS ORDERED: hydroCHLOROthiazide 12.5 MG CAP ONE (07:36)
[2020-07-07] MEDS ORDERED: AZITHROMYCIN IV 500 MG VIAL IVPB ONE (07:36)
[2020-07-07] MEDS ORDERED: SODIUM CHL 0.9% 50ML MIN-BAG+ 50 ML IVPB ONE (07:37)
[2020-07-07] MEDS ORDERED: cefTRIAXone SODIUM 1 GM VIAL ONE (07:37)
[2020-07-07] MEDS ORDERED: LOSARTAN POTASSIUM 100 MG TAB ONE (07:37)
[2020-07-07] MEDS ORDERED: SODIUM CHLORIDE 0.9% 250ML 250 ML ONE (07:37)
[2020-07-07] MEDS: LOSARTAN POTASSIUM 100 MG TAB PO SCH (08:25)
[2020-07-07] MEDS: FLUoxetine HCL 10 MG CAP PO SCH ×3 (08:25→20:02)
[2020-07-07] MEDS: guaiFENesin ER TAB 600 MG TAB PO SCH ×2 (08:25→20:02)
[2020-07-07] MEDS: DEXAMETHASONE INJ 10 MG/ML VIAL IV SCH (08:25)
[2020-07-07] MEDS: BIFIDOBACTERIUM INFANTIS 4 MG CAP PO SCH ×2 (08:25→20:02)
[2020-07-07] MEDS: cefTRIAXone SODIUM 1 GM in SODIUM CHL 0.9% 50ML MIN-BAG+ 50 ML IVPB SCH (08:26)
[2020-07-07] MEDS: hydroCHLOROthiazide 25 MG TAB PO SCH (08:26)
[2020-07-07] MEDS: PROPRANOLOL HCL 20 MG TAB PO SCH (08:26)
[2020-07-07] MEDS: AZITHROMYCIN IV 500 MG in SODIUM CHLORIDE 0.9% 250ML 250 ML IVPB SCH (08:26)
[2020-07-07] MEDS: SODIUM CHLORIDE 0.9% (FLUSH) 10 ML SYG IV SCH ×2 (08:27→20:02)
[2020-07-07] MEDS: LEVALBUTEROL NEBS 1.25 MG/3 ML VIAL NEB SCH ×2 (09:30→16:50)
[2020-07-07] MEDS ORDERED: levoFLOXacin 750MG IV 750 MG in PREMIX BAG 1 BAG IVPB SCH (09:30)
[2020-07-07] MEDS: REMOVE OLD PATCH TOP SCH (09:38)
[2020-07-07] MEDS: ALPRAZolam 0.5 MG TAB PO PRN (09:49)
--- NOTE | 2020-07-07 10:14 | PN ---
SUPERVISING PHYSICIAN: Jacobo Nuñez MD DATE: 07/07/20 SUBJECTIVE: The patient last night had to be placed on noninvasive ventilatory support with BiPAP due to persistent desaturations. He is actually not showing any significant respiratory distress, but his demand for O2 has increased over the last 24 hours. I did discuss plan of care and that we were going to try to get him transferred to a CT facility if possible. At this point, nothing indicates he needs to be intubated, but he certainly is not improving as expected. OBJECTIVE: VITAL SIGNS: Saturations 91% on BiPAP at rest on 100% FIO2. Respirations range between 16 and 25. He is afebrile at 98.0, pulse 67, blood pressure 133/88. GENERAL: The patient is on BiPAP, tolerating without any complications. He does not seem to be in any distress respiratory-adams. He is actually able to speak in full sentences, but he is a little anxious and requiring some Ativan and morphine at times. CHEST: Lung sounds diminished towards the bases. I do not hear any rhonchi or rales or any significant wheezing. HEART: Regular rate and rhythm. ABDOMEN: Obese, but soft and nontender. Positive bowel sounds. EXTREMITIES: No edema. NEUROLOGIC: Alert and oriented times three. LABORATORY: White count has gone up to 27,400. Left shift is noted, but no bands. D-dimer is actually down to 496. PTT 20.4. Fibrinogen 525. Blood gas analysis after he was on BiPAP at 100% shows pH 7.48, pCO2 33, pO2 72, saturation 94%. Chemistries show normal electrolytes, but anion gap is elevated at 18.1. Creatinine 1.17. Liver functions within normal limits except for slightly elevated bilirubin at 1.1. C-reactive protein did go up to 10.2. Troponin 0.02 x2 over the last 12 hours. MICROBIOLOGY: Blood cultures remain negative after 24 hours. RADIOLOGY: Repeat chest x-ray last night after being placed on BiPAP showed stable pulmonary opacities. No pneumothorax or pleural effusions. Stable mediastinal contour. EKG showed sinus rhythm with nonspecific ST wave changes, but nothing to indicate acute ischemia or acute coronary syndrome. Rate was at 68, unchanged from admission. ASSESSMENT: 1. COVID pneumonia with persistent hypoxemia. 2. Uncontrolled hypertension. 3. Electrolyte imbalance in the form of hypokalemia, normalized. 4. History of gout. PLAN: We have started him on noninvasive ventilatory support. Currently, he is at 100% FIO2. Clinically, he seems to be fairly stable, not in respiratory distress, but certainly had not a lot of wiggle room in regards to his respiratory efforts. I did discuss with him that if he progressively worsens to where he is demonstrating some respiratory distress, we will have to do intubation and put him on ventilator support. He is in agreement with that plan of care and requests that if we can transfer him at some point to the CT, that would be preferred. As of today, bed availability is uncertain. I did increase his antibiotic coverage given he had increase in his white count. I am not sure if that is just related to his Decadron, so he is now on Rocephin, azithromycin and Levaquin. He remains on Remdesivir, Protonix and Align. Hopefully, again we will be able to titrate him down on his FIO2 requirements. I anticipate his length of stay to be at least another 2 to 3 days, possibly needing transfer or intubation if he does clinically decline. Critical time spent on evaluation and treatment of the patient, coordination of care with nursing and respiratory staff, chart review, orders, treatment as well as documentation is 45 minutes. #[id number] [facility]
[2020-07-07] MEDS: ALBUTEROL INHALER 64 PUFF/8GM INH SCH ×4 (10:53→21:07)
[2020-07-07] MEDS: REMDESIVIR 100 MG in SODIUM CHLORIDE 0.9% 250ML 250 ML IVPB SCH (11:42)
[2020-07-07] MEDS: levoFLOXacin 750MG IV 750 MG in PREMIX BAG 1 BAG IVPB SCH (14:37)
[2020-07-07] MEDS: ENOXAPARIN SODIUM 40 MG/0.4 ML SYG SUBCU SCH (20:02)
[2020-07-07] MEDS: NITROGLYCERIN 0.4 MG/HR PATCH TOP SCH (20:02)
[2020-07-08] MEDS: LEVALBUTEROL NEBS 1.25 MG/3 ML VIAL NEB SCH ×3 (00:18→16:40)
[2020-07-08] MEDS ORDERED: PANTOPRAZOLE SODIUM TAB 40 MG PO ONE (02:35)
[2020-07-08] MEDS: PANTOPRAZOLE SODIUM TAB 40 MG PO SCH (06:08)
[2020-07-08] MEDS: PROPRANOLOL HCL 20 MG TAB PO SCH (07:00)
[2020-07-08] MEDS: REMOVE OLD PATCH TOP SCH (07:01)
--- NOTE | 2020-07-08 07:07 | RAD ---
PROCEDURE:XR CHEST 1 VIEW HISTORY:COVID PNA COMPARISON: July 07, 2020 FINDINGS: The heart is stable in appearance.. There are stable patchy infiltrates. There are no new infiltrates. There is no evidence for effusion or pneumothorax. There are no acute bony or soft tissue abnormalities. IMPRESSION: Stable chest x-ray. Electronically signed by: Adán Epps MD 07/08/2020 7:05 AM [facility]
[2020-07-08] MEDS: DEXAMETHASONE INJ 10 MG/ML VIAL IV SCH (09:19)
[2020-07-08] MEDS: BIFIDOBACTERIUM INFANTIS 4 MG CAP PO SCH ×2 (09:19→20:27)
[2020-07-08] MEDS: FLUoxetine HCL 10 MG CAP PO SCH ×3 (09:20→20:27)
[2020-07-08] MEDS: LOSARTAN POTASSIUM 100 MG TAB PO SCH (09:20)
[2020-07-08] MEDS: guaiFENesin ER TAB 600 MG TAB PO SCH ×2 (09:20→20:27)
[2020-07-08] MEDS: AZITHROMYCIN IV 500 MG in SODIUM CHLORIDE 0.9% 250ML 250 ML IVPB SCH (09:21)
[2020-07-08] MEDS: cefTRIAXone SODIUM 1 GM in SODIUM CHL 0.9% 50ML MIN-BAG+ 50 ML IVPB SCH (09:21)
[2020-07-08] MEDS: ALBUTEROL INHALER 64 PUFF/8GM INH SCH ×4 (09:22→20:00)
[2020-07-08] MEDS: SODIUM CHLORIDE 0.9% (FLUSH) 10 ML SYG IV SCH ×2 (09:28→20:27)
[2020-07-08] MEDS: hydroCHLOROthiazide 25 MG TAB PO SCH (09:28)
[2020-07-08] MEDS ORDERED: NITROGLYCERIN 0.4 MG/HR PATCH TOP SCH (10:08)
[2020-07-08] MEDS: REMDESIVIR 100 MG in SODIUM CHLORIDE 0.9% 250ML 250 ML IVPB SCH (11:10)
[2020-07-08] MEDS: levoFLOXacin 750MG IV 750 MG in PREMIX BAG 1 BAG IVPB SCH (16:30)
--- NOTE | 2020-07-08 18:02 | PN ---
SUPERVISING PHYSICIAN: Jacobo Nuñez MD DATE: 07/08/20 SUBJECTIVE: The patient is staying fairly stable on BiPAP, but still requires 100% FiO2. He is having some episodes of anxiety attacks, which are treating with Xanax and morphine and seems to be doing fairly well. We are still trying to get him transferred. I discussed this with him and his . They both understand this and again reinforced that if the patient's condition continues to deteriorate any, certainly he will need to be intubated and his wishes are to continue as a full code. OBJECTIVE: VITAL SIGNS: Temperature 98.1, pulse 79, blood pressure 147/84, respirations anywhere from 16 to 27. He is on 100% FiO2 with BiPAP, saturating anywhere from 93 to 94% at rest. GENERAL: At time of exam, the patient is resting comfortably, does not appear to be in any distress. He is actually able to converse in complete sentences but often gets short of breath with any exertional effort. CHEST: Lung sounds fairly clear, just diminished towards the bases. I do not hear any rhonchi or rales at this point. HEART: Regular rate and rhythm. ABDOMEN: Soft and nontender. Positive bowel sounds. EXTREMITIES: No edema. NEUROLOGIC: Alert and oriented times three. LABORATORY: White count is down today at 20,500. Differential does show a left shift with continued bands at 3%. Coagulation studies show D-dimer now normalized. Chemistries show normal electrolytes. Creatinine remains fairly stable and normal at 1.26. Bilirubin 1.1. Liver functions other than that are all normal. C-reactive protein did show some elevation today at 13. MICROBIOLOGY: Blood cultures remain negative after 3 days. RADIOLOGY: Repeat chest x-ray per radiologic interpretation showed x-ray to be stable with patchy infiltrates remaining, but no new infiltrates noted, effusions or pneumothorax. ASSESSMENT: 1. COVID pneumonia with severe hypoxemia requiring noninvasive ventilatory support on BiPAP. 2. Hypertension, now controlled. 3. Electrolyte imbalance in the form of hypokalemia, now normalized. 4. History of gout. PLAN: We will continue with noninvasive ventilatory support in the form of BiPAP. We will titrate his FiO2 down as he actually is showing some improvement. At this point, he is maintaining 100%. He is on antibiotic coverage with azithromycin, Rocephin and I did add Levaquin given his increasing white count and he is on continued Remdesivir, Lovenox at 40 mg at bedtime and D-dimer is normalized, so we will maintain that dosage. We will continue to watch his blood pressure and provide any anxiety medications in the form of Xanax or Ativan as needed to prevent any panic attacks and morphine as needed. Hopefully we will be able to start titrating his O2 needs down. Until then, we will continue to try to get him transferred. I think he is going to need at least an long-term acute care at some point, but until then, we will continue to monitor and treat as needed. #[id number] MTDD
[2020-07-08] MEDS: ENOXAPARIN SODIUM 40 MG/0.4 ML SYG SUBCU SCH (20:27)
[2020-07-08] MEDS: IV SET AND CAP CHANGE INJ INJ SCH (20:47)
[2020-07-08] MEDS ORDERED: REMOVE OLD PATCH TOP SCH (21:00)
[2020-07-08] MEDS: ALPRAZolam 0.5 MG TAB PO PRN (21:50)
[2020-07-08] MEDS: PROMETHAZINE W/CODEINE SYR 6.25 MG/10 MG/5 ML UD PO PRN (21:50)
[2020-07-09] MEDS: LEVALBUTEROL NEBS 1.25 MG/3 ML VIAL NEB SCH ×2 (00:55→08:55)
[2020-07-09] MEDS: PROMETHAZINE W/CODEINE SYR 6.25 MG/10 MG/5 ML UD PO PRN ×3 (05:20→14:51)
[2020-07-09] MEDS: PANTOPRAZOLE SODIUM TAB 40 MG PO SCH (06:09)
[2020-07-09] MEDS: FLUoxetine HCL 10 MG CAP PO SCH ×2 (08:12→14:43)
[2020-07-09] MEDS: guaiFENesin ER TAB 600 MG TAB PO SCH (08:12)
[2020-07-09] MEDS: BIFIDOBACTERIUM INFANTIS 4 MG CAP PO SCH (08:12)
[2020-07-09] MEDS: DEXAMETHASONE INJ 10 MG/ML VIAL IV SCH (08:12)
[2020-07-09] MEDS: PROPRANOLOL HCL 20 MG TAB PO SCH (08:13)
[2020-07-09] MEDS: hydroCHLOROthiazide 25 MG TAB PO SCH (08:13)
[2020-07-09] MEDS: LOSARTAN POTASSIUM 100 MG TAB PO SCH (08:13)
[2020-07-09] MEDS: cefTRIAXone SODIUM 1 GM in SODIUM CHL 0.9% 50ML MIN-BAG+ 50 ML IVPB SCH (08:14)
[2020-07-09] MEDS: SODIUM CHLORIDE 0.9% (FLUSH) 10 ML SYG IV SCH (08:24)
[2020-07-09] MEDS ORDERED: NITROGLYCERIN 0.4 MG/HR PATCH TOP SCH (09:00)
[2020-07-09] MEDS: ALBUTEROL INHALER 64 PUFF/8GM INH SCH ×2 (09:23→12:19)
[2020-07-09] MEDS: AZITHROMYCIN IV 500 MG in SODIUM CHLORIDE 0.9% 250ML 250 ML IVPB SCH (09:37)
[2020-07-09] MEDS: ALPRAZolam 0.5 MG TAB PO PRN (09:54)
[2020-07-09] MEDS: REMDESIVIR 100 MG in SODIUM CHLORIDE 0.9% 250ML 250 ML IVPB SCH (11:28)
[2020-07-09 12:35] VITALS: O2SAT 95
[2020-07-09] MEDS: levoFLOXacin 750MG IV 750 MG in PREMIX BAG 1 BAG IVPB SCH (13:50)
--- NOTE | 2020-07-09 15:12 | DS ---
SUPERVISING PHYSICIAN: Jacobo Nuñez MD ADMISSION DIAGNOSIS: 1. COVID pneumonia with associated hypoxemia. 2. Uncontrolled hypertension. 3. Mild electrolyte imbalance in the form of hypokalemia. 4. History of gout. DISCHARGE DIAGNOSIS: 1. COVID pneumonia with persistent hypoxemia requiring noninvasive ventilatory support in the form of BiPAP. 2. Hypertension. 3. History of gout. REASON FOR HOSPITALIZATION: Mr. Ordonez is a 59-year-old male patient who has recently been treated for a COVID-19 infection on 06/28/20 with steroids. He noted that over the last 24 hours, he had some increasing shortness of breath. He denied any chills or fever, but noted with ambulation he was really short of breath. He denied any chest pains. Vital signs in the Emergency Room showed saturation 82% initially on room air at rest. He was also hypertensive with blood pressure 161/122, afebrile at 98.4. His white count was elevated at 20,500 with 3% bands. D-dimer was slightly elevated at 707. Blood gas analysis in the Emergency Room on high flow nasal cannula initially showed he was saturation 94% with pH 7.48, pO2 70, pCO2 34, bicarb 25.2. Chemistries initially on admission showed troponin negative. He was not having any chest pains. C-reactive protein 8.7. BNP was normal. EKG showed sinus rhythm with PVCs, but no ST or T-wave changes to indicate acute injury or ischemia. Blood cultures were completed. Chest x-ray showed cardiomegaly with bilateral ground glass opacities and questionable pulmonary edema and unable to fully rule out bacterial pneumonia bilaterally. He was started on treatment with Remdesivir and now is going to be admitted for further treatment of COVID pneumonia secondary to COVID infection. He was admitted in stable condition. [facility], but due to capacity, they recommended he be admitted to [facility]. LABORATORY: White count today on discharge/transfer was 18,700. It does show a left shift, but no bands. His white count got as high as 27,400. He has had up to 3% bands. Admission white count initially was 20,500. Coagulation studies showed D-dimer initially 707 and is now down to 350, normal baseline level. His last blood gas analysis on 07/07/20 after being on BiPAP at 100% was showing pH 7.48, pCO2 33, pO2 72, bicarb 24. Chemistries show stable electrolytes now with creatinine at time of transfer of 1.26. C-reactive protein is persistently elevated at 13.4 today. He did have a BNP that was elevated at 209. Initially BNP was 89.3. Troponins were all negative at 0.02. MICROBIOLOGY: Three sets of blood cultures have been negative after 3 days. RADIOLOGY: Last chest x-ray on 07/08/20 showed stable chest with stable patchy infiltrates. No new infiltrates, no evidence of effusion or pneumothorax. HOSPITAL COURSE: Mr. Ordonez was admitted on 07/05/20 for COVID pneumonitis associated pneumonia. He has been BiPAP dependent since admission. He actually has been able to wean down since admission from 100% FiO2 to 80% today on 07/09/20 prior to discharge. Vital signs have been stable. Discharge vital signs showed he was afebrile at 97.4, pulse 68, blood pressure 123/77, respirations ranging from 18 to 26. BiPAP settings show he has an inspiratory pressure of 20/expiratory pressure of 10 with respirations 18 with FiO2 of 80%. The patient has been slow to titrate his FiO2 and is needing higher level of care for further pulmonary management of COVID pneumonia with persistent hypoxia. He has been on the transfer list for 3 days and we finally did get acceptance to [facility] which is greatly appreciated. He is now going to be transferred via air ambulance, Fixed Wing, from [facility] to [facility] in [place] for higher level of care including pulmonary services not available in [place]. PLAN: Mr. Ordonez is going to be discharged/transferred to [facility] in [facility] for pulmonary services. CONDITION ON DISCHARGE: Stable, but guarded. DISPOSITION: The patient is transferred for higher level of care not available at [facility]. Medications prescribed while he was in the hospital included azithromycin, Levaquin Lovenox, ceftriaxone and see MAR for full details of medications treatment course. All notes and records are provided on transfer. Acceptance is greatly appreciated. #[id number] MTDD
[2020-07-09 17:13] VITALS: BP 118/80; TEMP 97.2
== END 2020-07-09 17:00 | disposition home or self-care (01) | DRG 177 ==
LOC: ER 12:12 → MS 19:05 → OBSVTOIN 19:05
PROVIDERS: ADMIT Nurse Practitioner Acute Care; ATTEND Nurse Practitioner Family
PROC: XW033E5 Introduction of Remdesivir Anti-infective into Peripheral Vein, Percutaneous Approach, New Technology Group 5 (ICD-10-PCS; principal; 2020-07-05)
DX: U07.1 COVID-19 (principal); J12.82 Pneumonia due to coronavirus disease 2019; I10 Essential (primary) hypertension; M10.9 Gout, unspecified; E87.6 Hypokalemia; R09.02 Hypoxemia; Z88.8 Allergy status to other drugs, medicaments and biological substances; Z75.1 Person awaiting admission to adequate facility elsewhere